=== PATIENT | male | born 1945 | race Caucasian/White ===

== ENCOUNTER 2017-04-13 10:35 | Observation (INO) | payer OTHER ==
[~2017-04-13] VITALS: Ht 193 cm; Wt 90.8 kg
[~2017-04-13 10:35] MED LIST: ACIDOPHILUS1 EAC3 PO; CHOLESTYRAMINE L4 GM PO; CLONAZEPAM1 MG PO; FLAGYL250 MG PO; Percocet 5/325,Endoc PO; Vancocin PO
[2017-04-13 11:30] LABS: HEMATOCRIT 52.1 % (38.0-50.0); MCHC 32.4 G/DL (30.0-36.0); MCV 92.5 FL (86-99); MEAN PLAT.VOLUME 9.9 uM^3 (9.0-12.4); PLATELET COUNT 206 K/uL (156-360); RBC DIS.WIDTH-CV 12.2 % (11.8-14.6); RBC DIS.WIDTH-SD 41.8 % (39-53); RED BLOOD COUNT 5.63 M/uL (4.00-5.50); WHITE BLOOD COUNT 7.9 K/uL (4.1-10.2)
[2017-04-13] MEDS ORDERED: CEFTIN500 MG PO (11:33)
[2017-04-13] MEDS ORDERED: CLEOCIN300 MG PO (11:33)
[2017-04-13] MEDS ORDERED: DAILY VALUE1 EACH PO (11:33)
[2017-04-13] MEDS ORDERED: OMEPRAZOLE40 M1 PO (11:34)
[2017-04-13] MEDS ORDERED: PROPRANOLOL (11:34)
[2017-04-13] MEDS ORDERED: ZANTAC (11:34)
[2017-04-13 11:37] LABS: ADD MIUA? NO; BILIRUBIN NEGATIVE; BLOOD NEGATIVE; COLOR STRAW ((YELLOW)); GLUCOSE (STRIP) NEGATIVE; KETONES NEGATIVE; LEUKOCYTES NEGATIVE; NITRITE NEGATIVE; PROTEIN (STRIP) NEGATIVE; SPECIFIC GRAVITY 1.008 (1.000-1.030); UCUL ADDED? NO; UROBILINOGEN 0.2 MG/DL (0.2-1.0)
[2017-04-13 11:42] LABS: CHLORIDE 105 mEq/L (99-109); POTASSIUM 4.7 mEq/L (3.7-5.4); SODIUM 141 mEq/L (136-147)
[2017-04-13 11:44] LABS: GLUCOSE 90 mg/dL (70-99)
[2017-04-13 11:45] LABS: ANION GAP 10 MEQ/L (2-14)
[2017-04-13 11:47] LABS: GFR ESTIMATE (CALCULATED) > 59 mL/min/
[2017-04-13 11:48] LABS: UREA NITROGEN (BUN) 23 mg/dL (9-23)
[2017-04-13 11:50] LABS: TROP-I INTERPRETATION NEGATIVE; TROPONIN-I < 0.01 ng/mL (0.0-0.30)
[2017-04-13] MEDS ORDERED: INDERAL60 MG PO (14:09)
[2017-04-13] MEDS ORDERED: ZANTAC150 MG PO (14:09)
[2017-04-13 19:00] LABS: TROP-I INTERPRETATION NEGATIVE; TROPONIN-I < 0.01 ng/mL (0.0-0.30)
[2017-04-13 19:45] VITALS: BP 154/72
[2017-04-13 23:44] VITALS: BP 122/67
[2017-04-14 01:00] LABS: TROP-I INTERPRETATION NEGATIVE; TROPONIN-I 0.01 ng/mL (0.0-0.30)
[2017-04-14 07:06] LABS: HEMATOCRIT 52.9 % (38.0-50.0); MCH 29.8 PG (29.0-34.0); MCHC 32.3 G/DL (30.0-36.0); MCV 92.2 FL (86-99); MEAN PLAT.VOLUME 9.9 uM^3 (9.0-12.4); PLATELET COUNT 204 K/uL (156-360); RBC DIS.WIDTH-CV 12.3 % (11.8-14.6); RBC DIS.WIDTH-SD 41.7 % (39-53); RED BLOOD COUNT 5.74 M/uL (4.00-5.50)
[2017-04-14 07:31] LABS: ANION GAP 10 MEQ/L (2-14); CHLORIDE 103 MEQ/L (99-109); GFR ESTIMATE (CALCULATED) > 59 mL/min/; GLUCOSE 83 mg/dL (70-99); HDL CHOLESTEROL 39 MG/DL (Desirable>=40); LDL CHOLESTEROL 107 mg/dL (Desirable<100); NON-HDL CHOLESTEROL 137 mg/dL (Desirable<160); POTASSIUM 4.5 MEQ/L (3.7-5.4); SAMPLE HEMOLYSIS CHECK 1; SAMPLE ICTERIC CHECK 0; SAMPLE LIPEMIA CHECK 0; SODIUM 140 MEQ/L (136-147); TOTAL CHOLESTEROL 176 mg/dL (Desirable<200); TRIGLYCERIDES 151 MG/DL (Normal: <150); UREA NITROGEN (BUN) 20 mg/dL (9-23)
[2017-04-14 08:18] VITALS: BP 139/63
[2017-04-15 08:08] LABS: Estimated Average Glucose 114 mg/dL (70-123); HEMOGLOBIN A1c (GLYCOHEMOGLOB) 5.6 % HGB (Below 5.7)
== END 2017-04-14 11:24 | disposition home or self-care (01) ==
LOC: EME 10:35 → EDOF 15:14 → ENRESERV 15:22 → 5WEST 19:27
PROVIDERS: Emergency Medicine; Physician Assistant Medical
DX: R07.9 Chest pain, unspecified (principal); L03.116 Cellulitis of left lower limb; Z86.19 Personal history of other infectious and parasitic diseases; K21.9 Gastro-esophageal reflux disease without esophagitis; F41.9 Anxiety disorder, unspecified; Z87.19 Personal history of other diseases of the digestive system
CPT/HCPCS: 71020; 71275; 80048; 80061; 81003; 83036; 83880; 84484; 85027; 85379; 93005; 93971; 99281; 99285; G0378; J1650